=== PATIENT | male | born 1940 | race Caucasian/White ===

== ENCOUNTER → 2017-12-05 | Outpatient (CLI) | payer OTHER, BC ==
[~2017-12-05] MED LIST: COZAAR 25 MG TA25 M1 PO; FLOMAX0.4 MG PO; LIPITOR80 MG PO; PROSCAR 5MG TABL5 MG PO; PROTONIX40 M1 PO; TOPROL XL25 MG PO
--- NOTE | ~2017-12-05 | EKG ---
[address] [address] ELECTROCARDIOGRAM REPORT Name: DORENEFABIANVIKTORIA Room #: [facility]ALSedrickSedrick#: [id number] Admission: 12/05/17 Attend Phys: Smith Weiss MD Discharge: Date of : 36 Report #: [id number] THIS REPORT FOR: //name// [facility] Test Date: 2017-12-05 Test Time: 10:26:40 Pat Name: VIKTORIA CATHERINE Department: Room: Gender: M Field Enumerator: JACKELIN : 1940 Requested By: Smith Weiss Order Number: [id number] MD: Jayce Sanchez Measurements Intervals [place] Rate: 50 P: 48 [place]: 177 QRS: 47 QRSD: 108 T: 39 QT: 426 QTc: 389 Interpretive Statements Sinus rhythm No previous ECG available for comparison Electronically Signed On 12-05-2017 16:58:22 CDT by Jayce Sanchez [email or web address] <ELECTRONICALLY SIGNED> By: Jayce Sanchez MD 12/05/17 1658 1026 1026 MD SAMSON Hardwick
== END | disposition home or self-care (01) ==
LOC: LITH 10:07
DX: N20.1 Calculus of ureter (principal); N40.1 Benign prostatic hyperplasia with lower urinary tract symptoms; I25.2 Old myocardial infarction; Z95.5 Presence of coronary angioplasty implant and graft; Z85.828 Personal history of other malignant neoplasm of skin; Z98.890 Other specified postprocedural states; Z79.899 Other long term (current) drug therapy